=== PATIENT | female | born 1970 | race Caucasian/White ===

== ENCOUNTER 2021-12-26 11:08 | Outpatient (CLI) | payer MEDICAID, SELFPAY ==
--- NOTE | 2021-12-26 10:15 | DI.RAD_ITS ---
Exam(s) XR KNEE LT 3V AP,LAT,ANTONIO EXAM: XR KNEE LT 3V AP,LAT,ANTONIO CLINICAL HISTORY: eval L knee pain. TECHNIQUE: 2D digital imaging was performed. COMPARISON: No exams were available for comparison FINDINGS: There is no evidence of fracture although there does appear to be a small joint effusion. There is a dvanced narrowing of the medial compartment seen on the weight-bearing view. Milder degenerative adithya nges in the other 2 compartments. No osseous lesions. Bone density normal. IMPRESSION: Degenerative changes, most evident in the medial compartment. DATA REPOSITORY: RADIATION DOSE DELIVERED:
== END 2021-12-26 11:09 | disposition home or self-care (01) ==
LOC: DIORS 11:08
PROVIDERS: PCP Internal Medicine; Referring Provider Internal Medicine; Visit Provider Student in an Organized Health Care Education/Training Program
DX: M25.562 Pain in left knee; M25.462 Effusion, left knee; M23.8X2 Other internal derangements of left knee; M17.12 Unilateral primary osteoarthritis, left knee
CPT/HCPCS: 73562

== ENCOUNTER 2022-11-02 09:02 | Outpatient (CLI) | payer MEDICAID, SELFPAY ==
--- NOTE | 2022-11-02 06:00 | DI.RAD_ITS ---
Exam(s) XR PAIN CLINIC FLUORO JOINT IN EXAM: XR PAIN CLINIC FLUORO JOINT IN CLINICAL HISTORY: Dx: Left knee DJD. TECHNIQUE: Fluoroscopy was provided for the referring physician for guidance with performing pain cl inic injection procedure. COMPARISON: No exams were available for comparison FINDINGS: Please see procedure note for details. Fluoro time: 47.5 seconds RADIATION DOSE DELIVERED: easton Stewart=3.79 mGy
[2022-11-02 09:37] VITALS: BP 151/95; PULSE 65; RESP 20; TEMP 36.8; O2SAT 96
[2022-11-02] MEDS: Bupivacaine 0.5% Pres-Free 10 ML VIAL IJ (10:26)
[2022-11-02] MEDS: Omnipaque 240 MG/ML 50 ML BTL IJ (10:26)
[2022-11-02 10:27] VITALS: PULSE 64; O2SAT 95
--- NOTE | 2022-11-02 11:21 | PDOC.PAIN_ITS ---
Date of service: 11/02/22 Time of Service: 10:30 Pain Clinic Procedure Note Procedure Note Procedure Note: LEFT GENICULAR NERVE BLOCK Date of Service: November 02, 2022 Patient: Chloe Whitaker Provider: Moe Knapp DO, MPH Pre-operative diagnosis: Knee pain Post-operative diagnosis: Same Pre-procedure pain: VAS= 7/10 COMMENTS: She was previously seen in our clinic Chloe Whitaker has been referred to the [facility] for LEFT genicular nerve block. Chloe was interviewed and the medical record reviewed. There were no medical, pharmacologic, radiographic or other structural contraindications to attempting fluoroscopically guided LEFT genicular nerve block. Risks and potential side effects as well as potential benefit of the procedure were reviewed with Chloe , and HER voiced concerns were addressed. After I believed that the patient was completely informed, the printed consent form was signed. Standard time-out procedure was performed. Chloe was placed in the supine position on the fluoroscopy table and automated blood pressure cuff and pulse oximeter applied. The skin entry points for approaching LEFT superolateral genicular nerve, the superomedial genicular nerve, the terminal branch of the nerve vastus intermedius and the inferomedial genicular was identified under the most advantageous fluoroscopic view and marked. Following thorough Chlorhexadine preparation of the skin and draping, 1% lidocaine infiltration of the skin entry point and subcutaneous tissues was accomplished using a 1.5 25G needle. Next, the 3.5 25G spinal needle was advanced to os at the location of the specific nerve root using fluoroscopic guidance. Next, 1 ml of 1% Lidocaine was injected at each site. The needles were removed without difficulty. Chloe's vital signs were stable throughout the procedure and were as recorded in the docflowsheet by the nursing staff. If given, dosages of intravenous drugs for anxiolysis and analgesia were documented in MAR. Follow up plans and appointments were discussed with the Chloe . Post procedure instruction was given as documented in nursing documentation and having met discharge criteria, Chloe was discharged from the [facility]. COMMENTS: No apparent complications. Post-procedure pain: VAS = 5/10. The patient will keep track of her LEFT knee pain over the next four hours. If Chloe has sufficient pain relief, Chloe will be a candidate for radiofrequency ablation at the same nerves. Ricky WJ1, Bran SJ, Richard PadillaG, Kesha PadillaG, Kee MELISSA, Park PH, Derek JW. Radiofrequency treatment relieves chronic knee osteoarthritis pain: a double-blind randomized controlled trial. Pain. 2011 Jan;152(3):481-7. doi: 10.1016/j.pain.2010.09.029. Charley S1, Nehemiah ON2, Toma Y3, ?zl?eloise P2, Logan U1, Iam ?m?rl? I. Which one is more effective for the clinical treatment of chronic pain in knee osteoarthritis: radiofrequency neurotomy of the genicular nerves or intra- articular injection? Int J Rheum Dis. 2016 Jun 23. F/U with our office by phone to give the 1-4 hour post-procedure pain scores. Moe Knapp DO, MPH [facility]
== END 2022-11-02 09:03 | disposition home or self-care (01) ==
PROVIDERS: PCP Internal Medicine; Visit Provider Preventive Medicine Occupational Medicine
DX: M25.562 Pain in left knee (principal)
CPT/HCPCS: 64454; 77002; Q9967

== ENCOUNTER 2023-03-07 10:19 | Outpatient (CLI) | payer MEDICAID, SELFPAY ==
[2023-03-07 10:41] VITALS: BP 150/90; PULSE 71; RESP 20; TEMP 36.2; O2SAT 97
[2023-03-07] MEDS: Midazolam 2 MG/2 ML VIAL IVP (11:20)
[2023-03-07] MEDS: fentaNYL 100 MCG/2 ML VIAL IVP ×4 (11:20→11:40)
[2023-03-07] MEDS: Lactated Ringers 500 ML 80 ML IV (11:21)
[2023-03-07 11:48] VITALS: BP 124/67; PULSE 64; RESP 18; O2SAT 94
--- NOTE | 2023-03-07 11:48 | DI.RAD_ITS ---
Exam(s) XR PAIN CLINIC FLUORO JOINT IN EXAM: XR PAIN CLINIC FLUORO JOINT IN CLINICAL HISTORY: Dx: Knee pain. TECHNIQUE: Fluoroscopy was provided for the referring physician for guidance with performing pain cl inic injection procedure. COMPARISON: No exams were available for comparison FINDINGS: Please see procedure note for details. Fluoro time: 62.9 seconds RADIATION DOSE DELIVERED: easton Stewart=5.12 mGy
[2023-03-07] MEDS: Bupivacaine 0.5% Pres-Free 10 ML VIAL IJ (11:55)
[2023-03-07] MEDS: Lidocaine 2% Pres-Free 5 ML VIAL IJ (11:56)
[2023-03-07] MEDS: methylPREDNISolone ACETATE 40 MG/ML VIAL IJ (11:56)
--- NOTE | 2023-03-07 13:02 | PDOC.PAIN_ITS ---
Date of service: 03/07/23 Time of Service: 12:00 Pain Managment Procedure Note Procedure Note Procedure Note: LEFT GENICULAR NERVE RADIOFREQUENCY ABLATION WITH THE AVENOS MACHINE Date of Service: March 07, 2023 Patient: Chloe Whitaker Provider: Moe Knapp DO, MPH Pre-operative diagnosis: Left knee pain Post-operative diagnosis: Same Pre-operative pain VAS was 7/10 COMMENTS: Previous Genicular nerve block to the LEFT knee. Chloe Whitaker has been referred to the [facility] for LEFT genicular nerve radiofrequency ablation. Chloe was interviewed and the medical record reviewed. There were no medical, pharmacologic, radiographic or other structural contraindications to attempting fluoroscopically guided LEFT genicular nerve radiofrequency ablation. Risks and potential side effects as well as potential benefit of the procedure were reviewed with Chloe Whitaker , and HER voiced concerns were addressed. After I believed that the patient was completely informed, the printed consent form was signed. Standard time-out procedure was performed. Chloe was placed in the supine position on the fluoroscopy table and automated blood pressure cuff and pulse oximeter applied. The skin entry points for approaching LEFT superolateral genicular nerve, the superior patellar nerve, the superomedial genicular nerve and the inferomedial genicular was identified under the most advantageous fluoroscopic view and marked. Following thorough Chlorhexadine preparation of the skin and draping, 1% lidocaine infiltration of the skin entry point and subcutaneous tissues was accomplished using a 1.5 25G needle. Next, the 10 cm 18G RF Cannula with a 10 mm active tip was advanced to os at the location of the specific nerve roots (4) using fluoroscopic guidance. Next, sensory and motor testing was performed and no abnormal findings were found. Next, 1 cc of 2% Lidocaine was injected at each site. The lesion was then created with 80 degrees C for 90 seconds. Each cannula was advanced until the tip reached the posterior aspect of the bone shaft. 1/2 cc of Depomedrol (40 mg/cc) was then injected at each site followed by 2 cc of 0.5% Bupivacaine as the needle was withdrawn. The needles were removed without difficulty. Chloe's vital signs were stable throughout the procedure and were as recorded in the docflowsheet by the nursing staff. If given, dosages of intravenous drugs for anxiolysis and analgesia were documented in MAR. Follow up plans and appointments were discussed with the Chloe Whitaker . Post procedure instruction was given as documented in nursing documentation and having met discharge criteria, Chloe was discharged from the [facility]. COMMENTS: No complications. Post-procedure pain VAS was 2/10. Ricky WJ1, Bran SJ, Richard JG, Kesha JG, Kee MELISSA, Fior PH, Derek JW. Radiofrequency treatment relieves chronic knee osteoarthritis pain: a double-blind randomized controlled trial. Pain. 2010;152(3):481-7. doi: 10.1016/j.pain.[email or web address]. Charley S1, Nehemiah ON2, Toma Y3, ?zl?eloise P2, Logan U1, Iam ?m?rl? I. Which one is more effective for the clinical treatment of chronic pain in knee osteoarthritis: radiofrequency neurotomy of the genicular nerves or intra- articular injection? Int J Rheum Dis. 2016 Jun 23. F/U with our office as needed. If she receives at least 50% pain relief for at least 6 months, she can repeat this procedure if the pain returns. Moe Knapp DO, MPH [facility]
== END 2023-03-07 10:20 | disposition home or self-care (01) ==
PROVIDERS: PCP Internal Medicine; Visit Provider Preventive Medicine Occupational Medicine
DX: M25.562 Pain in left knee (principal)
CPT/HCPCS: 64624; 77002; J1030; J2250; J3010

== ENCOUNTER 2024-04-14 13:49 | Outpatient (CLI) | payer BC, SELFPAY ==
--- NOTE | 2024-04-14 13:30 | DI.RAD_ITS ---
Exam(s) XR STANDING ALIGNMENT EXAM: XR STANDING ALIGNMENT CLINICAL HISTORY: left knee DJD, pre TKA. TECHNIQUE: 2D digital imaging was performed. Five images were obtained. COMPARISON: CR XR KNEE LT 3V AP,LAT,ANTONIO from 12/26/2021 XR PAIN CLINIC FLUORO JOINT IN from 11/02/2022 XR PAIN CLINIC FLUORO JOINT IN from 03/07/2023 FINDINGS: BONES: The hips are well maintained. The patient has a right total knee replacement which appears in good position. In the left knee, there is marked narrowing of the medial femoral tibial joint. The re osteophytes seen both medially and laterally. The ankles are well maintained.There is no signific ant leg length discrepancy. SOFT TISSUE: Normal. IMPRESSION: Osteoarthritis of the left knee. DATA REPOSITORY: RADIATION DOSE DELIVERED:
== END 2024-04-14 13:50 | disposition home or self-care (01) ==
LOC: DIORS 13:51
PROVIDERS: PCP Internal Medicine; Visit Provider Student in an Organized Health Care Education/Training Program
DX: M17.12 Unilateral primary osteoarthritis, left knee (principal)
CPT/HCPCS: 77073

== ENCOUNTER 2024-08-01 01:04 | Outpatient (CLI) | payer BC, SELFPAY ==
[2024-08-01 11:02] LABS: HCT 42.1 % (36.0-46.0); HGB 13.6 g/dL (11.2-15.7); MCH 28.8 pg (27.0-33.0); MCHC 32.3 % (32.0-36.0); MCV 89 fL (80-95); MPV 9.4 fL (8.0-11.0); Platelet Count 308 10^3/uL (130-400); RBC 4.73 10^6/uL (3.93-5.22); RDW 13.6 % (11.7-14.6); RDW-SD 44.3 fL; WBC 8.58 10^3/uL (4.4-10.8)
[2024-08-01 11:36] LABS: Anion Gap 6.6 mmol/L (3-11); BUN 17 mg/dL (7-18); CO2 31.4 mmol/L (21.0-32.0); CREATININE 0.7 mg/dL (0.55-1.02); Calcium 9.4 mg/dL (8.5-10.1); Chloride 102 mmol/L (98-107); Estimated GFR 102.07 (mL/min/1.73m2); Glucose 84 mg/dL (74-106); Sodium 140 mmol/L (136-145)
== END 2024-08-01 01:05 | disposition home or self-care (01) ==
LOC: LBO 01:04
PROVIDERS: PCP Internal Medicine; Visit Provider Student in an Organized Health Care Education/Training Program
DX: M17.12 Unilateral primary osteoarthritis, left knee (principal); Z01.818 Encounter for other preprocedural examination
CPT/HCPCS: 36415; 80048; 85027

== ENCOUNTER 2024-08-12 11:10 | Observation (INO) | payer BC, SELFPAY ==
[2024-08-12] VITALS (30 sets, daily range): BP systolic 97–136; BP diastolic 38–75; PULSE 58–92; RESP 8–27; TEMP 36.2–36.7; O2SAT 89–99; BMI 48.1
[2024-08-12] MEDS: Acetaminophen 500 MG TAB 1000 MG PO ×2 (09:34→19:13)
[2024-08-12] MEDS: MELOXICAM 7.5 MG TAB PO (09:35)
[2024-08-12] MEDS: Gabapentin 300 MG CAP PO (09:35)
--- NOTE | 2024-08-12 09:36 | W.ANESPRE ---
General Info Date of Service Date Performed: 08/12/24 Height: 5 ft 4 in Weight: 127.1 kg Body Mass Index (BMI): 48.1 Surgical Procedure: Operation Date: 08/12/24 11:10 Proposed Procedure Side Surgeon p Knee Total Arthroplasty, Cementless CR Left Genaro Burger MD Meds Allergies and Home Medications Allergies Allergy/AdvReac Type Severity Reaction Status Date / Time adhesive Allergy Unknown Skin Rash Verified 08/12/24 09:06 chlorhexidine AdvReac Mild Itchy Rash Verified 08/12/24 09:06 lisinopril AdvReac COUGH Verified 08/12/24 09:06 Home Medication ?Medication ?Instructions ?Recorded meloxicam 15 mg tablet 15 mg PO DAILY #30 tabs 05/20/22 duloxetine 60 mg capsule,delayed 60 mg PO DAILY 02/22/23 release losartan 50 mg tablet 100 mg PO DAILY 02/22/23 amlodipine 5 mg tablet 5 mg PO DAILY 04/14/24 apixaban 5 mg tablet (Eliquis) 5 mg PO BID 04/14/24 atorvastatin 20 mg tablet 40 mg PO DAILY 04/14/24 clopidogrel 75 mg tablet 75 mg PO DAILY 04/14/24 diltiazem HCl 120 mg 120 mg PO DAILY 04/14/24 capsule,extended release 24 hr spironolactone 25 mg tablet 25 mg PO DAILY 04/14/24 semaglutide 0.25 mg or 0.5 mg (2 0.25 mg subcut QWEEK 08/01/24 mg/3 mL) subcutaneous pen injector (Ozempic) albuterol 90 mcg/actuation aerosol 90 mcg inhalation PRN 08/12/24 inhaler Current Visit Medications: Current Medications Generic Name Dose Route Start Last Admin Trade Name Freq PRN Reason Stop Dose Admin Acetaminophen 1,000 mg 08/12/24 06:00 Acetaminophen 500 Mg Tab PO 09/10/24 23:59 PREOP BROCK Gabapentin 300 mg 08/12/24 06:00 Gabapentin 300 Mg Cap PO 09/10/24 23:59 PREOP BROCK Ringer's Solution 1,000 mls @ 80 mls/hr 08/12/24 06:00 IV 09/10/24 23:59 INFUSION BROCK Cefazolin Sodium 3,000 mg/ 100 mls @ 200 mls/hr 08/12/24 06:00 Sodium Chloride IV 09/10/24 23:59 PREOP BROCK Tranexamic Acid/Sodium Chloride 1,000 mg in 100 mls @ 600 mls/hr 08/12/24 06:00 IVPB 09/10/24 23:59 PREOP BROCK IV Miscellaneous Supplies 1 each 08/12/24 06:00 Iv Access IV 09/10/24 23:59 DIRECTED BROCK Meloxicam 7.5 mg 08/12/24 06:00 Meloxicam 7.5 Mg Tab PO 08/12/24 23:59 PREOP BROCK Sodium Chloride 0 ml 08/12/24 06:00 Normal Saline Flush 10 Ml Syr IV 09/10/24 23:59 PRN PRN Sodium Chloride 0 ml 08/12/24 06:00 Normal Saline 10 Ml Vial IJ 09/10/24 23:59 DIRECTED PRN Sterile Water 0 ml 08/12/24 06:00 Water,Injection,Sterile 10 Ml Vial IJ 09/10/24 23:59 DIRECTED PRN PFSH Active Problems Active Problems: Problem Status Onset Code Left knee DJD Chronic M17.12 Plantar fascial fibromatosis Acute M72.2 Hidradenitis suppurativa Acute L73.2 Atopic dermatitis Acute L20.9 Chronic constipation Acute K59.09 Dilation of aorta Acute I77.819 Mitral valve regurgitation Chronic I34.0 Hypertensive disorder Chronic I10 Tricuspid valve regurgitation Acute I07.1 Periodic limb movement disorder Acute G47.61 JILLIAN (obstructive sleep apnea) Chronic G47.33 Major depression, recurrent, chronic Acute F33.9 Severe obesity Acute E66.01 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 Type 2 diabetes mellitus Acute E11.9 Medical History Medical History (Updated 08/12/24 @ 09:11 by Montse Charles) History of broken nose PAF (paroxysmal atrial fibrillation) Overactive bladder Pain in left foot Pain in left knee Cyst of right ovary Menopause present Pelvic and perineal pain Disorder of skin and subcutaneous tissue Increased frequency of urination Dyspnea Spasm Osteoarthritis of knee Ingrowing nail Allergic rhinitis due to pollen Lesion of ulnar nerve Normal esophagogastroduodenoscopy (EGD) 06/11/13 Colonoscopy causing post-procedural bleeding 10/14/18 Medical History Comments:: prefers not to do spinal Surgical History Surgical History (Updated 08/12/24 @ 09:11 by Montse Charles) S/P sinus surgery Hx of total knee arthroplasty right H/O cardiac catheterization x2 stents 10/2023 H/O colonoscopy 2018 H/O tubal ligation 11/12/89 H/O: hysterectomy 11/12/02 Tobacco Smoking/Tobacco Use Status: Never Alcohol Alcohol Intake: never Substance Use Substance use: Never Substance use type: does not use Vital Signs and Lab Results Vital Signs Most Recent Vital Signs in EMR: Most Recent Vital Signs Temp Pulse Resp BP Pulse Ox 36.5 C 58 L 16 121/63 96 08/12/24 08:40 08/12/24 08:40 08/12/24 08:40 08/12/24 08:40 08/12/24 08:40 Lab Results Blood Type / Crossmatch: No Data to Display Complete Blood Count: White Blood Count 8.58 10^3/uL (4.4-10.8) 08/01/24 10:47 Red Blood Count 4.73 10^6/uL (3.93-5.22) 08/01/24 10:47 Hemoglobin 13.6 g/dL (11.2-15.7) 08/01/24 10:47 Hematocrit 42.1 % (36.0-46.0) 08/01/24 10:47 Platelet Count 308 10^3/uL (130-400) 08/01/24 10:47 Complete Metabolic Panel: Sodium 140 mmol/L (136-145) 08/01/24 10:47 Potassium 4.0 mmol/L (3.5-5.1) 08/01/24 10:47 Chloride 102 mmol/L (98-107) 08/01/24 10:47 Carbon Dioxide 31.4 mmol/L (21.0-32.0) 08/01/24 10:47 BUN 17 mg/dL (7-18) 08/01/24 10:47 Creatinine 0.7 mg/dL (0.55-1.02) 08/01/24 10:47 Est GFR (CKD-EPI 2020) 102.07 (mL/min/1.73m2) 08/01/24 10:47 Calcium 9.4 mg/dL (8.5-10.1) 08/01/24 10:47 Glucose 84 mg/dL (74-106) 08/01/24 10:47 Liver Function Panel: No Data to Display Coagulation Panel: No Data to Display Cardiac Panel: No Data to Display Arterial Blood Gas: No Data to Display Venous Blood Gas: No Data to Display Pancreas Panel: No Data to Display Thyroid Panel: No Data to Display Infectious Disease: No Data to Display Blood Cultures: No Data to Display Toxicology Panel: No Data to Display Imaging and Studies Imaging and Studies Study information below may be from another EMR and interpreted by another provider. Please see original notes in EMR for more complete details. Stress Test Summary: 07/2022: Negative for ischemia Echocardiogram Summary: 07/2023: EF 65%, Mild with valve 1.1 area, Gradient 12. LVH Cardiac Catheterization Summary: 10/2023: Mid LAD Stent Placement, 2 total stents. Anesthesia Assessment and Plan Anesthesia History Personal History: PONV Family History: No Family History of Anesthesia Complications Exercise Tolerance Exercise Tolerance: Metabolic Equivalents>4 Pertinent Negatives Pertinent Negatives: No Symptoms of GERD Cardiac & Pulmonary Exam Cardiac Exam: Normal S1/S2 Heart Sounds Pulmonary Exam: Clear Bilateral Breath Sounds Implantable Cardiac Device Does patient have a Pacemaker or an ICD?: No Airway Exam Known Difficult Airway: No Mallampati Class: 2 Mouth Opening: Normal (> 3cm) Thyromental Distance: Less than 3 cm Neck Range of Motion: Full ROM Neck Circumference: Normal Teeth Condition: Normal Dentition ASA Classification ASA Score: ASA 3 Emergency Case?: No NPO Status NPO Status: NPO Clears >2 hours, Solids >8 hours Anesthesia Plan Resuscitation Status: Full Code Anesthesia Technique: General Anesthesia Airway Planned: Endotracheal Tube Pain Management: Surgeon and patient request nerve block Monitors Used: Standard Monitors
[2024-08-12] MEDS: Lactated Ringers 1,000 ML 80 ML IV (09:55)
[2024-08-12] MEDS: ceFAZolin 3,000 MG in Normal Saline 100 ML 200 MG IV (10:34)
[2024-08-12] MEDS: TRANEXAMIC ACID/SOD. CHL. 1,000 MG/100 ML BAG 600 MG IVPB (10:47)
--- NOTE | 2024-08-12 11:18 | W.ANESNERVE ---
Nerve Block Single Injection Procedure Date and Time Date Performed: 08/12/24 Procedure Start: 10:05 Location Where Procedure Performed Procedure Location: Day Surgery Unit Reason Performed: Postoperative Analgesia Requesting Provider: Genaro Burger Timeout Performed Timeout Performed: Yes Monitoring Used ECG, Blood Pressure, SpO2 and See EMR for corresponding vital signs Sterility Sterility: Hand Hygiene, Surgical Cap, Surgical Mask, Sterile Gloves and Other (Duraprep) Sedation Given During Procedure Sedation Given (Indicate Dose Given): Versed IV Dose:: 2mg Patient Mental Status Patient Mental Status: Awake Nerve Block 1st Nerve Block: Laterality: Left Block Type: Adductor Canal Ultrasound Image Saved?: Yes Needle / Catheter Used: 120mm SonoPlex II Local Anesthetic Bolus (Indicate Dose Given): Lidocaine used for local infiltration of skin, Injected in 3-5ml increments after negative blood aspiration, Bupivacaine 0.25% Dose:: 10ml and Exparel Dose:: 10ml Additives (Indicate Dose Given): None Ultrasound: Sterile probe cover and gel used Nerve Stimulator: Not Used Paresthesia: None Procedure Tolerated: No Complications and Patient tolerated well Procedure Outcome: Successful Performed By: Rikki Motta
[2024-08-12] MEDS: fentaNYL 100 MCG/2 ML VIAL IVP (12:58)
--- NOTE | 2024-08-12 14:13 | ROE_ITS ---
Date of service: 08/12/24 Time of Service: 10:50 Operative Note Operative Note DATE OF PROCEDURE: 08/12/24 PRE-OP DIAGNOSIS: Left Knee Osteoarthritis POST-OP DIAGNOSIS: same PROCEDURE: Left Total Knee Replacement SURGEON: Genaro Burger FOREST RESOURCE SPECIALIST: Corina Maddox ANESTHESIA TYPE: Spinal Refer to Anesthesia Record ESTIMATED BLOOD LOSS: 350 PATHOLOGY: none sent TOURNIQUET TIME: 0 COMPLICATIONS: None Patient was transported to: PACU Patient's condition: stable Implants: 1. Depuy Attune Cementless Cruciate Retaining Femoral Component, Size 6 2. Depuy Attune Cementless Fixed Bearing Tibial Component, Size 5 3. Depuy Attune 6x7 CR/FB Poly 4. Depuy Attune Patellar Component, Size 35 Indications: I have seen Chloe in clinic for symptoms of knee arthritis, confirmed with radiographic findings. She has exhausted nonoperative methods and was having significant limitations in daily function and desired better function and less pain. She has made excellent gains with her weight, starting with a BMI of nearly 57 and down to now BMI of 48. I discussed the technical details of a knee replacement. I explained the risks of the procedure to include, but not limited to, bleeding, infection, pain, stiffness, fracture, damage to nerves and vessels, damage to muscles and tendons, loosening, need for repeat procedure, blood clot and cardiopulmonary demise. Despite these risks, Chloe elected to proceed. Findings: There was significant signs of arthritis throughout the knee, mostly involving the medial compartment. Procedure Description: Chloe was greeted in the preoperative holding area where the correct side was identified and marked. The consent was reviewed with the patient and signed. The history and physical was updated. All questions were answered. Preoperative medications were administered: Acetaminophen 1000mg, Celebrex 400mg, and Gabapentin 300mg. An adductor canal block was then administered by the anesthesia team in the PACU. Chloe was taken back to the operating room. A general anesthetic was then administered. The patient was placed into the supine position on the operating room table. A nonsterile tourniquet was placed high onto the leg but only used for cementing. Posts were placed for positioning during the procedure. All bony prominences were well padded. Prophylactic antibiotics in the form of Cefazolin were administered. 1g of Tranxemic Acid was given intravenously within 30 minutes of incision. The left leg was then prepped with Chloraprep and draped in a standard fashion with impervious stockinette. A second prep with Chloraprep was performed prior to application of Iodine impregnated skin protection. A timeout to confirm correct identity, side and site, procedure, allergies, anesthesia, and medical concerns was performed. With the knee in some flexion, a midline incision was made overlying the knee. Full thickness skin flaps were raised once the extensor mechanism was enco untered. These were raised medially and laterally. Any bleeding was controlled with electrocautery. Once the extensor mechanism was fully exposed, a medial parapatellar arthrotomy was performed in a flexed position. All bleeding from the arthrotomy and the geniculate arteries was coagulated. A medial subperiosteal peel was performed with electrocautery to the midcoronal plane. The fat pad was removed while keeping the patellar tendon protected. The anterior distal femur synovium was removed for later visualization. The ACL and PCL were resected and the anterior horn of the lateral meniscus was transected. The knee was then flexed with the patella everted. Large osteophytes from the tibia were removed. Large osteophytes from the femur were removed. Using a step drill, and based on preoperative templating, the femoral canal was entered. This was done with a step drill without any difficulty. The intramedullary distal femoral cut guide was inserted, set to a 5 degree valgus cut and 9mm cut thickness. The distal femoral cut guide was then held in position and pinned. With the soft tissues protected, the distal cut was performed. This was passed over a few times to ensure a planar cut. I then turned attention to the tibia. The extramedullary guide was placed onto the leg. The distal aspect was slid medial to adjust for position of center of ankle and stay in line with shaft of the tibia. Approximately 3-5 degrees of posterior slope was kept in the proximal cutting guide. The center of the guide was aligned with the PCL. The stylus was used to assess cut thickness. The medial side, most involved side, was set for a 4mm cut. This was then held in position and pinned into place with 2 additional pins and a cross pin for stability. The medial and lateral collateral ligaments were protected and the cut was performed. With this completed, it was assessed and noted to be of appropriate dimensions. The guide was removed. A spacer block was inserted and the knee was brought into extension. The 6mm spacer block provided full extension, without hyperextension and with stability of both the medial and lateral collateral ligaments was assessed. The pins from the femur and the tibia were then removed. The distal femur was then sized. The anterior stylus was placed onto the lateral ridge of the anterior femur. This indicated a size 6 femur. The external rotation of the guide was adjusted to 0 degrees to match the epicondylar axis, perpendicular to Tate?s line. The 4-in-1 cutting guide was the placed. The posterior medial femur cut was evaluated and appeared of good thickness. The spacer block was inserted underneath the cutting guide and stability was confirmed in 90 degrees of flexion. An jody wing was used to confirm appropriate position of the anterior cut to avoid notching. This cutting guide was ensured to be flush on the cut surface and then pinned into place with headed pins. While protecting the soft tissues, quad tendon, and collateral ligaments, the anterior and posterior cuts were performed with a saw. The central two pins were removed and the posterior and anterior chamfers were cut next. The notch-cutting guide was placed. This was pinned to lateralize the femoral component as much as possible while keeping it flush on the cut surface. This was then pinned into position. A reciprocating saw was used to make the notch cut. A rasp smoothed the cut surfaces. The medial and lateral menisci were removed. A trial femoral component was then inserted, impacted down to the cut surfaces, and the lug holes were drilled. A provisional trial tibial component was placed and the knee was brought through range of motion. The polyethylene was trialed until there was good flexion and extension with excellent stability to the medial and lateral collaterals. The patella was tracking without thumbs. A size 7mm polyethylene component provided the best range of motion and stability with less than 2mm gapping with medial and lateral stress and full extension without significant hyperextension. The tibial cut surface was fully exposed. The tibia was then sized as a 5. The tibia had been previously marked during trialing to correspond to the center of the tibial component to help with rotation. The trial was aligned to this andrea, approximately rotated to the medial 1/3rd of the tibial tubercle. The trial was pinned into place. The tibia was prepared with a reamer and a keel punch and lug holes. The knee was then brought into extension and the patella was measured as 25mm. Using the patellar clamp and cut guide, this was resected to a flat surface with at least 13mm of thickness remaining. The size 35 patella fit the best. This was oriented and then clamped into position. The lugs were drilled. The trial components were removed. The final components were opened on the back table. The periosteal and capsular tissues, especially posteriorly, around the knee were then systematically injected with a periarticular cocktail consisting of 246mg of Ropivacaine, 0.5mg of Epinephrine, 0.08mg of Clonidine, and 30mg of Ketorolac, diluted to 100cc. On the back table, with the implants opened, the cement was mixed. One batch of high viscosity cement was prepared with vacuum assistance. After the cement was ready a small amount was placed on the cut surface of the patella and the patellar button was clamped into position and held. While the cement was hardening, the cementless knee components were placed. Starting with the tibial component, the tibia was subluxed anteriorly and the lug holes of the component were lined up. The tibia was then impacted with an impactor and mallet until the tibial component was in contact with the tibia. The final polyethylene component was inserted. Then, the femoral component was inserted. The lug holes were aligned and the component was impacted into position. The knee was irrigated with Surgiphor Betadine solution. This was allowed to sit in the knee for 3 minutes and then it was irrigated out with saline. After the cement had finally cured, approximately 15min, the clamp was removed from the patella and the knee was taken through range of motion. The patella was tracking with a no-thumbs technique. The capsule was then reapproximated with a No. 1 Vicryl at multiple locations. The capsule was finally closed with a No. 2 Stratafix, barbed suture. The second dosing of 1g TXA was started. Deep tissues were then reapproximated with 0 Vicryl and 2-0 Vicryl. The skin was closed with a running 3-0 Monocryl in a subcuticular fashion. This was reinforced with skin glue. A Mepilex silver dressing was applied along with a [id number] HELGA wrap. A CryoCuff was applied. Chloe was transferred to the hospital bed without difficulty an suffering no apparent complication. Chloe has a good prognosis. Physical therapy will start today and without restrictions, weight-bearing as tolerated. She will resume her home dose of apixaban 5 mg twice daily, starting tomorrow morning, for DVT prophylaxis.
--- NOTE | 2024-08-12 14:35 | W.ANESPOSTOP ---
Postoperative Evaluation Date, Time and Location Date Performed: 08/12/24 Time Performed: 14:35 Patient Location: Day Surgery Unit Vital Signs Most Recent Imported Vital Signs: Most Recent Vital Signs Temp Pulse Resp BP Pulse Ox 36.2 C L 92 H 16 97/38 L 91 L 08/12/24 13:36 08/12/24 13:36 08/12/24 13:36 08/12/24 13:20 08/12/24 13:20 Pain Score Most Recent Pain Score: Most Recent Pain Score Pain Level 5 08/12/24 13:20 Assessment Mental Status: Awake (Alert & Oriented to Patient Baseline) Airway and Respiratory Function: Patent airway with normal (patient baseline) respiratory exam Cardiovascular Function: Hemodynamically Stable Hydration Status: Adequately Hydrated Nausea & Vomiting: No Nausea or Vomiting Pain: Pain is tolerable per patient Peripheral Nerve Block: Regional nerve block not resolved at time of post operative discharge
--- NOTE | 2024-08-12 15:56 | W.PC.ACHO ---
Registration Status: Primary Language: Preferred Language: Medical / Surgical History (Last Updated 08/12/24 @ 09:11 by Montse Charles) History of broken nose PAF (paroxysmal atrial fibrillation) Overactive bladder Pain in left foot Pain in left knee Cyst of right ovary Menopause present Pelvic and perineal pain Disorder of skin and subcutaneous tissue Increased frequency of urination Dyspnea Spasm Osteoarthritis of knee Ingrowing nail Allergic rhinitis due to pollen Lesion of ulnar nerve Normal esophagogastroduodenoscopy (EGD) Colonoscopy causing post-procedural bleeding (Last Updated 08/12/24 @ 09:11 by Montse Charles) S/P sinus surgery Hx of total knee arthroplasty H/O cardiac catheterization H/O colonoscopy H/O tubal ligation H/O: hysterectomy Most Recent Vital Signs Temperature 36.2 C L 08/12/24 13:36 Temperature Source Temporal Artery Scan 08/12/24 10:15 Pulse 92 H 08/12/24 13:36 Pulse Rhythm Regular 08/12/24 08:40 Pulse 70 08/12/24 13:21 Respiratory Rate 16 08/12/24 13:36 Respiratory Depth Normal 08/12/24 08:40 Blood Pressure 97/38 L 08/12/24 13:20 Blood Pressure Mean 57 08/12/24 13:21 Blood Pressure Position Supine 08/12/24 10:15 Pulse Oximetry 91 L 08/12/24 13:20 Respiratory End-tidal CO2 45 08/12/24 13:21 Oxygen Delivery Method Nasal Cannula 08/12/24 15:06 Oxygen Flow Rate 2 08/12/24 15:06 Pain Level 5 08/12/24 13:20 Comment MARISELA Shrestha assisted by MIR Burk. 2L O2 via NC placed post procedure to maintain O2 SATs. monitoring equipment in place until patient left for procedure. 08/12/24 10:15 Allergies adhesive Allergy (Unknown, Verified 08/12/24 09:06) Skin Rash chlorhexidine Adverse Reaction (Mild, Verified 08/12/24 09:06) Itchy Rash Surgical Scrub lisinopril Adverse Reaction (Verified 08/12/24 09:06) COUGH Active Medications Generic Name Dose Route Start Last Admin Trade Name Freq PRN Reason Stop Dose Admin Acetaminophen 1,000 mg 08/12/24 06:00 08/12/24 09:34 Acetaminophen 500 Mg Tab PO 09/10/24 23:59 1,000 mg PREOP BROCK Administration Gabapentin 300 mg 08/12/24 06:00 08/12/24 09:35 Gabapentin 300 Mg Cap PO 09/10/24 23:59 300 mg PREOP BROCK Administration Cefazolin Sodium 3,000 mg/ 100 mls @ 200 mls/hr 08/12/24 06:00 08/12/24 10:47 Sodium Chloride IV 09/10/24 23:59 Infused PREOP BROCK Infusion Tranexamic Acid/Sodium Chloride 1,000 mg in 100 mls @ 600 mls/hr 08/12/24 06:00 08/12/24 10:57 IVPB 09/10/24 23:59 Infused PREOP BROCK Infusion Meloxicam 7.5 mg 08/12/24 06:00 08/12/24 09:35 Meloxicam 7.5 Mg Tab PO 08/12/24 23:59 7.5 mg PREOP BROCK Administration IV IV Catheter Type [Right Upper Peripheral IV arm] IV Catheter Gauge [Right Upper 20 arm] Diet Orders Category Date Time Status Diabetes Consistent CHO/Heart Healthy [DIET] Nutrition 08/12/24 Lunch Active [id number] Documentation Fingerstick Glucose Start: 08/12/24 09:44 Freq: Status: Complete Protocol: Activity Type Activity Date Activity User E-sign Co-sign Detail Recorded Client Recorded Date Recorded By Document 08/12/24 09:42 BKG DAEMON(5) [id number] 08/12/24 09:44 BKG DAEMON(6) Fingerstick Glucose Start: 08/12/24 11:17 Freq: .Stat Status: Complete Protocol: Activity Type Activity Date Activity User E-sign Co-sign Detail Recorded Client Recorded Date Recorded By Document 08/12/24 13:02 BKG DAEMON(7) [id number] 08/12/24 13:15 BKG DAEMON(8) Intake and Output - 24 Hour Total 04/15/24 09:55 thru 08/12/24 13:30 Intake Total 1000 Output Total 350 Balance 650 Weight 127.1 kg Intake: IV 1000 Output: Estimated Blood Loss 350 Other: Emesis Description None v v v v v v v v v Sending and/or Receiving Nurses: Please use comment section below to note any information pertinent to the patient hand-off not included above. Information / Comments: Report recieved from Montse, Day surgery, at 1554. Report received from:
[2024-08-12] MEDS: ceFAZolin 1 GM/50 ML BAG IVPB ×2 (16:27→21:34)
[2024-08-12] MEDS: Normal Saline Flush 10 ML SYR IV (16:28)
[2024-08-12] MEDS: oxyCODONE 5 MG TAB PO ×2 (19:27→23:36)
[2024-08-13 00:19] VITALS: O2SAT 92
[2024-08-13 04:09] VITALS: O2SAT 93
[2024-08-13 05:14] VITALS: PULSE 64; RESP 18; O2SAT 96
[2024-08-13] MEDS: ceFAZolin 1 GM/50 ML BAG IVPB (05:14)
[2024-08-13 06:29] VITALS: BP 111/63; PULSE 63; RESP 18; TEMP 36.4; O2SAT 97
[2024-08-13 06:36] LABS: HCT 34.3 % (36.0-46.0); HGB 11.3 g/dL (11.2-15.7); MCH 29.1 pg (27.0-33.0); MCHC 32.9 % (32.0-36.0); MCV 88 fL (80-95); MPV 9.4 fL (8.0-11.0); Platelet Count 272 10^3/uL (130-400); RBC 3.88 10^6/uL (3.93-5.22); RDW 13.7 % (11.7-14.6); RDW-SD 44.3 fL; WBC 13.62 10^3/uL (4.4-10.8)
[2024-08-13 06:45] LABS: Anion Gap 8.4 mmol/L (3-11); BUN 16 mg/dL (7-18); CO2 27.6 mmol/L (21.0-32.0); CREATININE 0.8 mg/dL (0.55-1.02); Calcium 8.7 mg/dL (8.5-10.1); Chloride 103 mmol/L (98-107); Estimated GFR 86.96 (mL/min/1.73m2); Glucose 140 mg/dL (74-106); Potassium 4.4 mmol/L (3.5-5.1); Sodium 139 mmol/L (136-145)
[2024-08-13] MEDS: oxyCODONE 5 MG TAB PO ×2 (07:10→10:15)
[2024-08-13 07:21] VITALS: BP 101/49; PULSE 63; RESP 18; TEMP 36.2; O2SAT 92
[2024-08-13] MEDS: DULoxetine 30 MG CAP 60 MG PO (08:13)
[2024-08-13 08:14] VITALS: O2SAT 94
[2024-08-13] MEDS: Spironolactone 25 MG TAB PO (08:14)
[2024-08-13] MEDS: dilTIAZem CD 120 MG CAPCR PO (08:14)
[2024-08-13] MEDS: Atorvastatin 20 MG TAB 40 MG PO (08:14)
[2024-08-13] MEDS: Acetaminophen 500 MG TAB 1000 MG PO (08:14)
[2024-08-13] MEDS: Dexamethasone 4 MG TAB PO (08:14)
--- NOTE | 2024-08-13 08:14 | RESPIRATORY ---
Pt's own ResMed [id number] Auto-CPAP Min Pressure: 12 Max Pressure: 18 No O2 bleed in. DME: [employer] [facility] Nasal Mask: Small
[2024-08-13] MEDS: Losartan 50 MG TAB 100 MG PO (08:15)
[2024-08-13] MEDS: amLODIPine 5 MG TAB PO (08:15)
[2024-08-13] MEDS: Clopidogrel 75 MG TAB PO (08:15)
[2024-08-13] MEDS: Meloxicam 15 MG TAB PO (08:15)
--- NOTE | 2024-08-13 09:56 | ROE_ITS ---
Date of service: 08/12/24 Time of Service: 10:45 Operative Note Operative Note DATE OF PROCEDURE: 08/12/24 PRE-OP DIAGNOSIS: Left Knee Arthritis POST-OP DIAGNOSIS: same PROCEDURE: 1. Depuy Attune Cementless Cruciate Retaining Femoral Component, Size 6 2. Depuy Attune Cementless Fixed Bearing Tibial Component, Size 5 3. Depuy Attune 6x7 CR/FB Poly 4. Depuy Attune Patellar Component, Size 35 SURGEON: Genaro Burger CERTIFIED MEDICAL TECHNICIAN ASSISTANT: Corina Maddox ANESTHESIA TYPE: Spinal Refer to Anesthesia Record ESTIMATED BLOOD LOSS: 350 PATHOLOGY: none sent TOURNIQUET TIME: 0 Patient was transported to: PACU Patient's condition: stable Implants: 1. Depuy Attune Cementless Cruciate Retaining Femoral Component, Size 6 2. Depuy Attune Cementless Fixed Bearing Tibial Component, Size 5 3. Depuy Attune 6x7 CR/FB Poly 4. Depuy Attune Patellar Component, Size 35
--- NOTE | 2024-08-13 09:57 | W.PM.DS.N ---
Date of service: 08/13/24 Time of Service: 09:15 Discharge Plan Disposition Patient Disposition: Home Condition: Good Discharge Details Reason For Visit: Left knee DJD Admit Date/Time: 08/12/24 11:10 Admit Provider: Genaro Burger Attending Provider: Genaro Burger Primary Care Provider: Mili Santos [facility] Course Hospital Course: Patient was admitted to the medical/surgical floor following the procedure. The surgery was tolerated well without any notable medical, surgical, or anesthetic complications. Mobilization began postoperatively. She was voiding spontaneously. Vitals were stable. Physical therapy worked with the patient and was cleared for discharge home. No acute medical issues. Pain was controlled on oral regimen. Home Meds and New Rx's Prescriptions: New acetaminophen 500 mg tablet 1,000 mg PO Q8H PRN Qty: 90 0RF Rx Instructions: Take two tablets up to every 8 hours as needed for pain meloxicam 15 mg tablet 15 mg PO DAILY Qty: 30 1RF Rx Instructions: Take one tablet daily for pain and inflammation docusate sodium [Colace] 100 mg capsule 100 mg PO BID Qty: 30 0RF pantoprazole 40 mg tablet,delayed release (DR/EC) 40 mg PO DAILY 14 Days Qty: 14 0RF dexamethasone 4 mg tablet 4 mg PO DAILY Qty: 2 0RF Rx Instructions: Take one tablet once daily for two days gabapentin 300 mg capsule 300 mg PO QHS Qty: 14 0RF Rx Instructions: Take one tablet at bedtime oxycodone 5 mg tablet 5 mg PO Q4H PRNQty: 18 0RF Rx Instructions: Take one tablet up to every 4 hours as needed for severe postoperative pain Continued losartan 50 mg tablet 100 mg PO DAILY atorvastatin 20 mg tablet 40 mg PO DAILY Eliquis 5 mg tablet 5 mg PO BID clopidogrel 75 mg tablet 75 mg PO DAILY diltiazem HCl 120 mg capsule,extended release 24hr 120 mg PO DAILY spironolactone 25 mg tablet 25 mg PO DAILY amlodipine 5 mg tablet 5 mg PO DAILY Ozempic 0.25 mg or 0.5 mg (2 mg/3 mL) pen injector 0.25 mg subcut QWEEK Rx Instructions: for 4 weeks duloxetine 60 mg capsule,delayed release(DR/EC) 60 mg PO DAILY albuterol 90 mcg/actuation aerosol 90 mcg inhalation PRN Discontinued meloxicam 15 mg tablet 15 mg PO DAILY Qty: 30 3RF Patient Comments: Havent started Discharge Instructions Additional Instructions: Total Knee Discharge Instructions Activity: The most important activity is to walk and to work on gentle motion (both flexion and extension). You should try to take short walks a few times a day. It is important that when resting you work on keeping the knee straight. Avoid putting a pillow behind the knee as this will encourage flexion. Work on range of motion exercises as provided by Physical Therapy. - Start outpatient physical therapy within 2 weeks. - You should wear the CATHY hose on both legs for 2 weeks. You may remove these at night. You may also use any compression sock in place of the CATHY hose. - Utilize [employer] to review exercises, see videos on exercises and obtain basic information pertaining to your surgery and your recovery. Dressing: Remove the David wrap by 2 days after your surgery and put on the CATHY stocking given to you from the hospital. Keep the surgical dressing (underneath the DAVID wrap) in place for at least one week. After the first week it may be removed and replaced with light gauze and tape or nothing. The wound and dressing may get wet after 3 days but avoid soaking the dressing or otherwise it will need to be changed. Many people prefer covering the dressing with cling wrap (saran wrap) to minimize it from getting soaked. If it gets wet, just pat dry. If it starts to peel off then it will need to be changed. Medications: - You should take Tylenol and anti-inflammatory Meloxicam as your primary pain control medications. If the Meloxicam is too expensive or not covered, please call the office for another alternative (Advil/Ibuprofen or Naproxen/Aleve) - You have been prescribed a stronger pain medication Oxycodone for breakthrough pain, take as needed as prescribed. - You have also been prescribed a stomach acid reduction agent Pantoprozole to help reduce stomach acid and reflux. - You have been prescribed Gabapentin to take at night for restlessness and nerve pain. - You will resume your anticoagulation of Eliquis and Plavix tomorrow, on 08/13/24, for DVT prevention. - You have also been prescribed Decadron to take to control post-operative nausea and pain. You will start this tomorrow. - If you have constipation you should take Colace (which has been prescribed) or Miralax (which is available [id number]). It takes most people 3-4 days to have a bowel movement. Follow-up: 2 weeks If you have any acute concerns or questions, please do not hesitate to contact the office at [phone]. You may contact Dr. Burger with any questions after hours through the hospital at [phone] or on his cell phone at [phone]. Referrals: Genaro Burger MD [ [facility] STAFF PHYSICIAN] - Activity:: Activity as Tolerated Equipment/Supplies:: Walker Diet:: As Tolerated Discharge Orders Discharge Orders: Discharge Order (Routine); Ordered 08/13/24 Ordered By: Genaro Burger DS: Summary Time Spent with Patient providing and/or coordinating discharge services: Less than 30 minutes Status at Discharge Functional status at discharge: uses cane/walker Overall status at discharge: patient is progressing back to baseline Mental Status: mental status grossly normal Speech and Movement: speech and movement normal Mood: congruent mood Affect: normal affect Quality:SDOH Health Related Social Needs: No Data to Display Exam Narrative Exam Narrative: Sitting up in the chair. No acute distress. Alert and oriented x 3. Left lower extremity dressing is clean dry and intact. David wrap is removed. He is able to demonstrate active knee extension to within 5 degrees and flexion to at least 90 degrees. No pain with range of motion. Intact ankle dorsiflexion and plantarflexion as well as great toe extension and flexion. Sensation intact to light touch over the deep and superficial peroneal nerve and tibial nerve. Psych Mental Status: mental status grossly normal Speech and Movement: speech and movement normal Mood: congruent mood Affect: normal affect DS: Data Vitals/I&O Vitals and I&O: Vital Signs Temperature 97.7 F 08/12/24 08:40 Pulse 58 L 08/12/24 08:40 Pulse Rhythm Regular 08/12/24 08:40 Respiratory Rate 16 08/12/24 08:40 Respiratory Depth Normal 08/12/24 08:40 Blood Pressure 121/63 08/12/24 08:40 Pulse Oximetry 96 08/12/24 08:40 Oxygen Delivery Method Room Air 08/12/24 08:40 Oxygen Flow Rate 0 08/12/24 08:40 Pain Level 6 08/12/24 08:40 Intake & Output 08/11/24 08/11/24 08/12/24 11:59 23:59 11:59 Intake Total 200 / 200 Balance 200 / 200 Weight 280 lb 3.32 oz Intake: IV 200 / 200 PFSH All Active Problems (Updated 08/12/24 @ 15:35 by July Alexandra RN) History of total left knee replacement (Acute 08/12/24) Plantar fascial fibromatosis (Acute) Hidradenitis suppurativa (Acute) Atopic dermatitis (Acute) Chronic constipation (Acute) Dilation of aorta (Acute) Mitral valve regurgitation (Chronic) Hypertensive disorder (Chronic) Tricuspid valve regurgitation (Acute) Periodic limb movement disorder (Acute) JILLIAN (obstructive sleep apnea) (Chronic) Major depression, recurrent, chronic (Acute) Severe obesity (Acute) Familial combined hyperlipidemia (Acute) Type 2 diabetes mellitus (Acute) Medical History (Updated 08/12/24 @ 15:35 by July Alexandra RN) History of broken nose PAF (paroxysmal atrial fibrillation) Overactive bladder Pain in left foot Pain in left knee Cyst of right ovary Menopause present Pelvic and perineal pain Disorder of skin and subcutaneous tissue Increased frequency of urination Dyspnea Spasm Osteoarthritis of knee Ingrowing nail Allergic rhinitis due to pollen Lesion of ulnar nerve Normal esophagogastroduodenoscopy (EGD) 06/11/13 Colonoscopy causing post-procedural bleeding 10/14/18 Surgical History (Updated 08/12/24 @ 15:35 by July Alexandra RN) S/P sinus surgery Hx of total knee arthroplasty right H/O cardiac catheterization x2 stents 10/2023 H/O colonoscopy 2017 H/O tubal ligation 11/12/89 H/O: hysterectomy 11/12/02 Social History Smoking/Tobacco Use Status: Never Smoking risk assessment performed?: Yes Alcohol Intake: never Drug use: Never Substance use type: does not use Housing: house Additional Social history: [facility] Time Spent with Patient Time Spent with Patient: <45 minutes Time was spent: preparing to see the patient(eg.review tests), obtaining and/or reviewing separately otained hiistory, indepentently interpreting results and care coordination
--- NOTE | 2024-08-13 10:41 | PDOC.CMDIS ---
Date of service: 08/13/24 Time of Service: 10:41 LACE Index Scoring Tool Questions: Length of Stay (in days): 1 Was the patient admitted via the E.D.?: No E.D. Visits: 0 Answers: Total Score: 1 Risk of Readmission: Low Risk Care Management Discharge Plan Reason for Hospitalization: Left Total knee replacement on 08/12/24 Discharge Plan: Chloe is discharged home today with no new services. She has orders for new pain medication. She already has f/u appointments with the surgeon and outpatient PT. She has been given instructions on how to take her meds and care for her incision. Her was present during those instructions, and they feel confident that they can follow the plan of care. Chloe's will transport her home. Patient/Family Education Needs: Review of discharge instructions, activity, limitations and follow up plan SDOH Health Related Social Needs: No Data to Display
--- NOTE | 2024-08-13 10:42 | IN_ITS ---
PT Notes Visit Reasons: Left knee DJD Physical Therapy Initial Evaluation Date: 08-13-2024 Referring Doctor: Dr Burger PT Orders: PT CONSULT: PT evaluation s/p ortho surgery Precautions: WBAT LLE, TEDS BLE Patient Profile/Admitting Diagnosis: Pt is 53yo female admitted s/p elective Left TKA d/t OA on 08-12-2024 with post op complicated by low oxygen saturation requiring supplemental oxygen of 4L/Min and low BPs. Pt was admitted to the med- surg unit for continued medical management/ observation prior to discharge to home. PMHX: OA left knee s/p right TKA plantar fascitis Atopic dermatitis Dilation of aorta Hidradenitis Suppurativa Mitral valve regurgitation Tricuspid valve regurgitation Hypertensive disorder JILLIAN obesity Major depression HLD type 2 DM Social History/Home Situation: Lives at home with in single level home with 5 steps and 2 rails to enter. Pt independent with ADL, iADLS, cooking, cleaning and ambulation without a device. 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 Equipment Owned/DME: CPAP/ Pt received FWW from day surgery unit whic was fitted by this PT Subjective: Pt reports she is feeling much better than yesterday after surgery. She reports her knee feels okay.She reports Dr Burger removed the michaela bandage this morning. Objective: [] General Observation: alert female semireclined in bed with cryocuff to her left knee. No oxygen on with saturation reading 93% Mental Status: A+Ox4 Pain: left knee 3/10 ROM: [] Right Upper Extremity: WNL Left Upper Extremity: WNL Right Lower Extremity: WNL Left Lower Extremity: hip and ankle WNL, knee 0-91 degree Strength: [] Right Upper Extremity: 5/5 Left Upper Extremity: 5/5 Right Lower Extremity: 5/5 Left Lower Extremity: hip 3-/5, knee extension3-/5 knee flexion 2+/5 ankle 3+/5 Sensation: intact Bed Mobility/Transfers: Supine to/from sit modified independent utilizing RLE to sccop/lift LLE off bed Sit to stand Independent Stand to sit Independent Bed to chair Modified independent with FWW Gait: modified independent with FWW 150 feet step to pattern demonstrating decreased left knee flexion and circumduction during left swing phase, excessive WB through BUE to unweight LLE. pt required cues to contract quad during mid stanceLLE to reduce knee instability. Stairs: 5 steps with 2 rails CGA step 2 pattern Balance: [] Static Sitting: Normal Dynamic Sitting: Normal Static Standing: Good Dynamic Standing: Good - Special Tests: [] Mobility Limitations Standardized Measure [] [facility] AM-PAC 6 clicks Basic Mobility Inpatient Short Form: [] Raw Score: 21 CMS Score: 28.97% Informed Consent/Education: Patient instructed in purpose of PT consult. Packet containing TKA exercise protocol has been given to patient. Education and training on initial set of exercises that can be done at home have been completed with patient. Assessment: Patient presents with clinical signs and symptoms consistent with current/admitting diagnoses that have resulted to mobility limitations, gait instability, generalized weakness, and impairment of motor control as demonstrated by the following impairment level findings: 1. Decreased strength to left knee major muscle groups 2. Impaired standing balance 3. Limitation of joint range of motion in left knee Impairments are contributing to the following functional limitations: 1. Inability to safely ambulate without assistive device 2. Increase completion time for mobility ADL performance 3. Increased fall risk Patient is assessed as a Moderate complexity based on the following: History: 53-year-old female with impairment level findings, functional limitations, and past medical history as indicated above Examination: Demonstrable impairment in strength, balance, and mobility level with underlying impairments and functional limitations as documented above Presentation: stable Decision Making: moderate Goals: N/A. Plan of Care/Treatment Plan: N/A. Treatment: Therapeutic activity: transfers bed mobility and ambulation with FWW caregiver training , stair training with 2 rails. able to provide appropriate cues. Therex: LLE 2 sets 5 reps per TKA protocol. DISCHARGE RECOMMENDATIONS: home with HEP and outpatient PT as scheduled TREATMENT CODE/TIME: 99734a 20 mins for 1 unit , 29814 x36 mins for 2 units , [id number] mins for 1 unit / [id number] Thank you for the opportunity to participate in the care of this patient. Please sign an return this page within 30 days if you agree with the above POC. Thank you! Physician Signature Date [facility]
== END 2024-08-13 10:41 | disposition home or self-care (01) ==
LOC: SUR 11:13 → MS 16:37
PROVIDERS: Admitting Provider Student in an Organized Health Care Education/Training Program; PCP Internal Medicine; Visit Provider Student in an Organized Health Care Education/Training Program
PROC: (CPT 27447; principal; 2024-08-12 11:00)
DX: M17.12 Unilateral primary osteoarthritis, left knee (principal); E66.01 Morbid (severe) obesity due to excess calories; Z79.85 Long-term (current) use of injectable non-insulin antidiabetic drugs; Z68.42 Body mass index [BMI] 45.0-49.9, adult; G47.33 Obstructive sleep apnea (adult) (pediatric); E11.9 Type 2 diabetes mellitus without complications; I34.0 Nonrheumatic mitral (valve) insufficiency; L73.2 Hidradenitis suppurativa; M72.2 Plantar fascial fibromatosis; L20.9 Atopic dermatitis, unspecified; I10 Essential (primary) hypertension; G47.61 Periodic limb movement disorder; K59.09 Other constipation; Z96.651 Presence of right artificial knee joint
CPT/HCPCS: 27447; 36415; 76942; 80048; 85027; 96365; 96366; 97110; 97162; 97530; C1776; C9290; G0378; J0665; J0690; J1100; J2250; J2405; J2704; J3010; J8540

== ENCOUNTER 2024-08-25 15:36 | Outpatient (CLI) | payer BC, SELFPAY ==
--- NOTE | 2024-08-25 14:45 | DI.RAD_ITS ---
Exam(s) XR STANDING ALIGNMENT EXAM: XR STANDING ALIGNMENT CLINICAL HISTORY: eval L TKA. TECHNIQUE: 2D digital imaging was performed. COMPARISON: CR XR STANDING ALIGNMENT from 04/14/2024 FINDINGS: 3 views There has been interval placement of a left knee prosthesis which appears satisfactory. There are no w bilateral knee prostheses. Hips appear unremarkable. Ankles unremarkable. Bone density normal. No osseous lesions IMPRESSION: As above. DATA REPOSITORY: RADIATION DOSE DELIVERED:
--- NOTE | 2024-08-25 14:45 | DI.RAD_ITS ---
Exam(s) XR KNEE LT 1V EXAM: XR KNEE LT 1V CLINICAL HISTORY: eval L TKA. TECHNIQUE: 2D digital imaging was performed. COMPARISON: CR XR KNEE LT 3V AP,LAT,ANTONIO from 12/26/2021 FINDINGS: Single lateral view Position and alignment of the components of the recently placed left knee prosthesis appear satisfact ory. No fractures nor loosening evident on this lateral view. There has been patellar resurfacing. IMPRESSION: Satisfactory appearance DATA REPOSITORY: RADIATION DOSE DELIVERED:
== END 2024-08-25 15:37 | disposition home or self-care (01) ==
LOC: DIORS 15:37
PROVIDERS: PCP Internal Medicine; Visit Provider Student in an Organized Health Care Education/Training Program
DX: Z96.652 Presence of left artificial knee joint (principal); Z47.1 Aftercare following joint replacement surgery
CPT/HCPCS: 73560; 77073

== ENCOUNTER 2025-08-17 11:57 | Outpatient (CLI) | payer BC, SELFPAY ==
--- NOTE | 2025-08-17 10:30 | DI.RAD_ITS ---
Exam(s) XR KNEE LT 2V AP,LAT EXAM: XR KNEE LT 2V AP,LAT CLINICAL HISTORY: F/U LEFT TKA. TECHNIQUE: 2D digital imaging was performed. Two images were obtained. AP, lateral and oblique views were obtained. COMPARISON: CR XR KNEE LT 3V AP,LAT,ANTONIO from 12/26/2021 CR XR STANDING ALIGNMENT from 08/25/2024 CR XR KNEE LT 1V from 08/25/2024 FINDINGS: BONES: There are stable post operative changes of a left total knee arthroplasty present. No fracture or dislocation. JOINTS: The orthopedic hardware is in good position. No evidence of hardware loosening. SOFT TISSUE: Normal. IMPRESSION: Stable left total knee arthroplasty. DATA REPOSITORY: RADIATION DOSE DELIVERED:
== END 2025-08-17 11:58 | disposition home or self-care (01) ==
LOC: DIORS 11:57
PROVIDERS: PCP Internal Medicine; Visit Provider Student in an Organized Health Care Education/Training Program
DX: Z96.652 Presence of left artificial knee joint (principal)
CPT/HCPCS: 73560